=== PATIENT | female | born 1995 | race Caucasian/White ===

== ENCOUNTER → 2023-10-17 10:15 | Outpatient (REF) | payer OTHER, SELFPAY | LOC: RAD 10:15 | PROVIDERS: ATTENDING PHYSICIAN Nurse Practitioner Family | DX: M54.9 Dorsalgia, unspecified (principal) | CPT/HCPCS: 72072 ==

== ENCOUNTER → 2024-10-29 11:44 | Outpatient (REF) | payer OTHER, SELFPAY | LOC: DHSLP 11:44 | PROVIDERS: ATTENDING PHYSICIAN Physician Assistant | DX: G47.30 Sleep apnea, unspecified (principal); R06.83 Snoring | CPT/HCPCS: 95810 ==